=== PATIENT | male | born 1980 | race Caucasian/White ===

== ENCOUNTER 2019-02-01 17:05 | Emergency (ER) | payer SELFPAY ==
[~2019-02-01] VITALS: Ht 165.1 cm; Wt 55.0 kg
[2019-02-01] MEDS ORDERED: ONDANSETRON (ODT) 4 MG TAB ODT STA (17:14)
[2019-02-01] MEDS ORDERED: LIDOCAINE 1%/EPI 30 ML INJ INJ STA (17:14)
[2019-02-01] MEDS ORDERED: HYDROCODONE/APAP (5/325) TAB PO STA (17:14)
[2019-02-01 17:22] VITALS: BP 146/68; PULSE 72; RESP 18; Ht 165.1 cm; Wt 55.0 kg
[2019-02-01] MEDS ORDERED: DIPHTH/TET/ACEL PERTUSS (ADULT) 0.5 ML VIAL IM* ONE (17:30)
--- NOTE | 2019-02-01 18:55 | ERD ---
ER Documentation Chief Complaint Chief Complaint LACERATION TO LEFT EYEBROW HPI Patient is a 38-year-old male with no medical problems who presents with a laceration. The patient was brought in by ambulance. He had a slip and fall off of a ramp while at work. He did not lose consciousness. He has a laceration above his left eye. He has no trouble with vision. This happened 30 minutes prior to arrival. He does have pain. He does not currently have a primary doctor. He has had no treatment as of yet. ROS All systems reviewed and are negative except as per history of present illness. Allergies Allergies: Coded Allergies: No Known Allergy (Unverified , 02/01/19) PMhx/Soc Medical and Surgical Hx: pt denies Medical Hx, pt denies Surgical Hx Hx Alcohol Use: No Hx Substance Use: No Hx Tobacco Use: No Smoking Status: Never smoker FmHx Family History: No diabetes Physical Exam Vitals Vital Signs Date Temp Pulse Resp B/P (MAP) Pulse Ox O2 O2 Flow FiO2 Time Delivery Rate 02/01/19 98.1 72 18 146/68 100 17:22 (94) Physical Exam Const: No acute distress Head: Atraumatic Eyes: Normal Conjunctiva ENT: Normal External Ears, Nose and Mouth. Neck: Full range of motion. No meningismus. Resp: Clear to auscultation bilaterally Cardio: Regular rate and rhythm, no murmurs Abd: Soft, non tender, non distended. Normal bowel sounds Skin: 4 cm laceration to the left orbital ridge Back: No midline or flank tenderness Ext: No cyanosis, or edema Neur: Awake and alert Psych: Normal Mood and Affect Results 24 hrs Current Medications Medications Dose Sig/Kristen Start Time Status Last (Trade) Ordered Route PRN Stop Time Admin Dose Reason Admin Diphtheria/ 0.5 ml ONCE ONCE 02/01/19 DC 02/01/19 Tetanus/Acell IM* 17:30 17:23 Pertussis 02/01/19 17:31 (Adacel) 1 tab ONCE STAT 02/01/19 DC 02/01/19 Acetaminophen PO 17:14 17:22 / 02/01/19 17:16 Hydrocodone Bitart ([place] (5/325)) Ondansetron 4 mg ONCE STAT 02/01/19 DC 02/01/19 HCl (Zofran ODT 17:14 17:22 Odt) 02/01/19 17:16 Lidocaine/ 30 ml ONCE STAT 02/01/19 DC Epinephrine INJ 17:14 (Xylocaine 02/01/19 17:16 1%/ Epi (Pf)) Bacitracin 1 applic ONCE ONCE 02/01/19 02/01/19 (Bacitracin TOP 19:00 18:44 Oint (Ud)) 02/01/19 19:01 Procedures/MDM Laceration Repair by me: Anesthesia: 1% lidocaine with epinephrine locally Location: Left eyebrow Tendon/Joint/Nerves: No injury Foreign body: None detected after copious irrigation and exploration Technique: Simple Interrupted Sutures Complexity: No subcutaneous sutures/mucosal repair/edge excision Post Closure Length: 4 cm Patient's bleeding was easily controlled in the department and there is no indication of anemia. No evidence of compartment syndrome, neurologic injury, vascular injury, open joint, tendon laceration, or foreign body. Patient is appropriate for outpatient follow up. 48 hour wound check. Scar minimization instructions given. I do not believe the patient requires CT scan at this time and I think the risk would outweigh the benefits. Departure Diagnosis: Primary Impression: Laceration Condition: Fair Patient Instructions: Laceration, Face (Suture Or Tape) [facility] Usted se cyr hecho un examen mdico de control que le indica que no est en veronica condicin que requiera tratamiento urgente en el Departamento de Emergencia. Un estudio ms profundo y el tratamiento de falcon condicin pueden esperar sin ningn riesgo hasta que usted sea atendida/o en el consultorio de falcon mdico o veronica clnica. Es responsabilidad suya arreglar veronica candida para el seguimiento del mango. MANEJO DE CONDICIONES NO URGENTES EN EL FUTURO 1) Si usted tiene un mdico de atencin primaria: Usted debera llamar a falcon mdico de atencin primaria antes de venir al departamento de emergencia. Despus de las horas de consultorio, falcon doctor o falcon asociado/a est disponible por telfono. El mdico o enfermero de elisa en el servicio telefnico puede asesorarle por michelle medio para atender el problema, o mango contrario se puede programar veronica candida. 2) Si usted no tiene un mdico de atencin primaria: Llame al mdico o clnica de referencia que aparece abajo analilia las horas de consultorio para hacer veronica candida para que le vean. CLINICAS: [facility] [phone] [id number] [facility] [phone] [address] [facility] [phone] [address] [facility] [facility] [phone] [facility] [phone] [address] [facility]. [phone] [address] Additional Instructions: Wound check 2 days. Suture removal 7-10 days. MARK ANTHONY RIVERA MD Feb 01, 2019 18:55
[2019-02-01] MEDS ORDERED: BACITRACIN 0.9 GM OINT TOP ONE (19:00)
== END 2019-02-01 18:44 | disposition home or self-care (01) ==
LOC: FTE 17:05
DX: S01.112A Laceration without foreign body of left eyelid and periocular area, initial encounter (principal); W01.0XXA Fall on same level from slipping, tripping and stumbling without subsequent striking against object, initial encounter; Y92.89 Other specified places as the place of occurrence of the external cause; Z23 Encounter for immunization
CPT/HCPCS: 90471; 90715